=== PATIENT | female | born 1980 | race Caucasian/White ===

== ENCOUNTER 2023-01-15 09:09 | Emergency (ER) | payer OTHER, SELFPAY ==
--- NOTE | 2023-01-15 09:13 | ED.ANIMALBIT ---
HPI - Animal Bite General Chief Complaint: Animal Bite Stated Complaint: Dog Bite Time Seen by Provider: 01/15/23 09:12 Source: patient Mode of arrival: ambulatory Limitations: no limitations History of Present Illness HPI narrative: Jose Antonio is a 42 year old female patient presenting to the clinic today with complaints of a dog bite to her right side of her face just above her chin. She reports that the bite was provoked and she was taking the dog from the dog's foot gatherer to placed a dog in the house and was [id number] with the dog when the dog bit her. The dog is up-to-date on its shots. She reports that she is up-to-date on her tetanus. Bleeding is controlled. Has a small puncture wound/laceration to the right side of her face with moderate gaping with movement of her mouth Related Data Home Medications Medication Instructions Recorded Confirmed gabapentin 300 mg capsule 300 mg PO DAILY 01/15/23 01/15/23 hydroxyzine HCl 25 mg tablet 25 mg PO BID PRN Anxiety 01/15/23 01/15/23 tamoxifen 20 mg tablet 20 mg PO DAILY 01/15/23 01/15/23 topiramate 100 mg tablet 100 mg PO DAILY 01/15/23 01/15/23 trazodone 50 mg tablet 50 mg PO HS PRN Insomnia 01/15/23 01/15/23 venlafaxine 50 mg tablet 50 mg PO BID 01/15/23 01/15/23 Allergies Allergy/AdvReac Type Severity Reaction Status Date / Time NSAIDS (Non-Steroidal AdvReac Mild Other Verified 01/15/23 09:31 Anti-Inflamma Review of Systems Review of Systems: Pertinent positives per HPI. Patient denies any fever, chills, rash, headache, visual changes, dizziness, cough, runny nose, sore throat, shortness of breath, chest pain, palpitations, nausea, vomiting, diarrhea, constipation, abdominal pain, or any urinary issues. PMFSH Comments At the time of my signature, I reviewed and agree with the nursing past medical, surgical, social, and family history. There is no relevant family history pertinent to the patient complaint. Exam Narrative: General: Well-developed, well nourished, in no apparent distress Head: Normocephalic, atraumatic. Cardio: Regular rate and rhythm, s1 and s2 normal, no murmur appreciated. Resp: Clear to auscultation bilaterally, no rhonchi, rales, wheezing or rubs. Integumentary: [place], warm, and dry, intact without lesion, 0.5cm laceration to the skin tissue just below the lip. Bleeding controlled. Course Course Emergency Course: Portions of this record may have been created with voice recognition software. Level of Care: Express Care Visit Vital Signs Vital signs: Vital signs reviewed Procedures Laceration Laceration 1: Date: 01/15/23 Site: face Side (If applicable): right Size (cm): 0.5 Description: linear Depth: simple, single layer Local Anesthetic: lidocaine 1% and with epi Amount of anesthesia used (mL): 0.5 Pre-repair: wound explored, irrigated and irrigated extensively ====== Skin Level ====== Skin layer closed with: nylon Size (cm): 6-0 Number of sutures: 1 Technique: simple, interrupted ====== Subcutaneous Layer ====== ====== Muscle Layer ====== ====== Tendon Layer ====== Dressing: Verbal consent obtained for laceration repair. Risk and benefits explained and patient voiced understanding. Area was cleansed with [place] Wash and normal saline and a 25 gauge needle was then used to instill (0.5) ml of 1% lidocaine with epi into the wound edges. Area was prepped and draped using sterile technique. A 6-0 suture on a p needle was used to place (1) interrupted sutures bringing the wound edges together- well approximated. Patient tolerated procedure well. Sterile dressing applied. MDM - Animal Bite MDM Narrative Medical decision making narrative: At the time of visit patient is resting comfortably on the exam table. Patient has a 0.5 cm gaping laceration to the right side of her face just below her lip. Wound does becom
[2023-01-15 09:27] VITALS: BP 140/85; PULSE 85; RESP 16; TEMP 37.3; O2SAT 98
== END 2023-01-15 09:48 | disposition home or self-care (01) ==
PROVIDERS: Emergency Provider Nurse Practitioner Family; PCP Family Medicine
DX: S01.85XA Open bite of other part of head, initial encounter (principal); W54.0XXA Bitten by dog, initial encounter; G62.9 Polyneuropathy, unspecified; Z98.84 Bariatric surgery status; Z96.653 Presence of artificial knee joint, bilateral; Z85.3 Personal history of malignant neoplasm of breast; Z92.21 Personal history of antineoplastic chemotherapy; Z92.3 Personal history of irradiation
CPT/HCPCS: 12011; 99213; G0463